=== PATIENT | female | born 1935 | race Asian ===

== ENCOUNTER 2016-12-25 20:22 | Emergency (ER) | payer MEDICARE, MEDICAID ==
[~2016-12-25] VITALS: Ht 144.8 cm; Wt 40.8 kg
[~2016-12-25 20:22] MED LIST: ACETAMINOPHEN-1 EAC1 ORAL; AMIODARONE; AUGMENTIN 875-1 EAC1 ORAL; CLONIDINE0.1 MG GT; METOPROLOL TART50 M1 ORAL; NKM; NORCO 5-325 TA1 EACH ORAL; TYLENOL ARTHRI650 M1 PO; atenolo
[2016-12-25] MEDS ORDERED: ACETAMINOPHEN-1 EAC1 ORAL (21:13)
[2016-12-25] MEDS ORDERED: FLOXIN10 ML RIGHT EAR (21:13)
[2016-12-25 21:15] VITALS: BP 174/78
[2016-12-25] MEDS ORDERED: Tylenol #3 tab (300mg/30mg) ORAL ONE (21:15)
--- NOTE | 2016-12-26 06:05 | Emergency Room Report ---
History of Present Illness General Chief Complaint: Earache Source: Patient Present Illness HPI 81-year-old female presents to ED complaining of right ear pain. Had this pain for several weeks. Pain is 10 of 10, throbbing, nonradiating. Daughter at bedside states that patient was seen 3 weeks ago at another emergency room and was prescribed eardrops. Was seen by ENT as followup and prescribed some medication which unsure the name of. Patient states the pain persists so she came here. Denies any fevers or chills. No other aggravating relieving factors. Denies any other associated symptoms Allergies: Coded Allergies: No Known Allergies (Unverified , 10/21/12) Patient History Past Medical History: HTN Past Surgical History: none Pertinent Family History: none Social History: Denies: alcohol use, drug use, smoking Last Menstrual Period: NA Now: No Immunizations: UTD Reviewed Nursing Documentation: PMH: Agreed, PSxH: Agreed Nursing Documentation-PMH Hx Cardiac Problems: Yes Hx Hypertension: Yes Hx Cancer: No - back bladder problems Hx Gastrointestinal Problems: No Hx Neurological Problems: No Review of Systems All Other Systems: negative except mentioned in HPI Physical Exam Vital Signs Date Time Temp Pulse Resp B/P Pulse Ox O2 Delivery O2 Flow Rate FiO2 12/25/16 20:44 98.2 59 18 180/82 99 12/25/16 21:15 Room Air Sp02 EP Interpretation: reviewed, normal General Appearance: no apparent distress, alert, GCS 15, non-toxic Head: normocephalic, atraumatic Eyes: bilateral eye PERRL, bilateral eye normal inspection ENT: hearing grossly normal, normal pharynx, no angioedema, normal voice, other - swollen R ear canal. unable to visualize R TM Neck: full range of motion, supple/symm/no masses Respiratory: chest non-tender, lungs clear, normal breath sounds, speaking full sentences Cardiovascular #1: regular rate, rhythm, no edema Gastrointestinal: normal inspection Rectal: deferred Genitourinary: no CVA tenderness Musculoskeletal: normal inspection Neurologic: normal inspection Psychiatric: normal inspection Skin: normal inspection Lymphatic: normal inspection Medical Decision Making Diagnostic Impression: Primary Impression: Otitis externa Qualified Codes: H60.61 - Unspecified chronic otitis externa, right ear ER Course Hospital Course 81-year-old M presents to ED with pain R ear. with drainage Differential diagnoses include: TM perforation, otitis externa, otitis media Clinical course Patient placed on stretcher. After initial history, physical exam reveals an elderly female in no acute distress. unable to visualize R TM, serous drainage noted. ear canal swollen. Consistent with otitis externa. Remainder of exam unremarkable Given Tylenol #3 in ED. I explained to daughter that treatment should be continued with the ENT. It is not advisable to consult too many physicians as it will likely impede her care Diagnosis - otitis externa Stable and discharged to home with Rx ofloxacin otic, Tylenol #3. Followup with PMD. Return to ED if symptoms recur or worsen Last Vital Signs Date Time Temp Pulse Resp B/P Pulse Ox O2 Delivery O2 Flow Rate FiO2 12/25/16 21:15 98.1 60 14 174/78 98 Room Air Status: improved Disposition: HOME, SELF-CARE Condition: Stable Scripts Acetaminophen With Codeine (T#3) (TYLENOL #3 TAB*) Y Tab 1 TAB ORAL Q8H Y for For Pain, #20 TAB Prov: REJI CHAO M.D. 12/25/16 Ofloxacin (Floxin) 10 Ml Drops 10 DROP RIGHT EAR BID for 14 Days, #10 ML Prov: REJI CHAO M.D. 12/25/16 Referrals: NON PHYSICIAN (PCP) Patient Instructions: Otitis Externa, [id number] REJI CHAO M.D. December 26, 2016 06:05
== END 2016-12-25 21:15 | disposition home or self-care (01) ==
LOC: EMR 21:10
DX: H60.91 Unspecified otitis externa, right ear (principal); I10 Essential (primary) hypertension
CPT/HCPCS: 99284